=== PATIENT | male | born 1965 | race Caucasian/White ===

== ENCOUNTER 2019-03-20 10:11 | Day surgery (SDC) | payer MEDICAID ==
[~2019-03-20] VITALS: Ht 180.3 cm; Wt 86.4 kg
[2019-03-20 10:23] VITALS: BP 163/96
[2019-03-20] MEDS ORDERED: FERR-29 PO (10:28)
[2019-03-20] MEDS ORDERED: fentaNYL/PF 50MCG/1 ML 2ML syringe ONE (10:38)
[2019-03-20] MEDS ORDERED: MIDAZolam 5mg/5ml vial ONE (10:38)
[2019-03-20] MEDS ORDERED: LIDOcaine Viscous 15ml cup ONE (10:38)
[2019-03-20 11:09] VITALS: BP 101/59
[2019-03-20 11:19] VITALS: BP 158/96
[2019-03-20 11:29] VITALS: BP 151/97
[2019-03-20 11:39] VITALS: BP 146/100
== END 2019-03-20 11:56 | disposition home or self-care (01) ==
LOC: GI LAB 10:11
PROVIDERS: ATTEND Internal Medicine Gastroenterology
DX: K74.60 Unspecified cirrhosis of liver (principal); I85.00 Esophageal varices without bleeding; K29.60 Other gastritis without bleeding; B96.81 Helicobacter pylori [H. pylori] as the cause of diseases classified elsewhere; K44.9 Diaphragmatic hernia without obstruction or gangrene; K31.89 Other diseases of stomach and duodenum
CPT/HCPCS: 43239; 99152; J2250; J3010; J7040; A4620